=== PATIENT | female | born 1970 | race African-American/Black ===

== ENCOUNTER 2024-07-19 16:47 | Inpatient (IN) | payer MEDICAID ==
[~2024-07-19] VITALS: Ht 160 cm; Wt 72.6 kg
[2024-07-19] MEDS: CEFEPIME 2 GM in IV D5W 100 ML IV ONE (03:00)
[2024-07-19] MEDS: IV NS 0.9% 1,000 ML BAG IV ONE (17:59)
[2024-07-19] MEDS ORDERED: ACETAMINOPHEN ES 500 MG TABLET ONE (18:05)
[2024-07-19] MEDS ORDERED: IBUPROFEN 600 MG TABLET ONE (18:05)
[2024-07-19 18:10] LABS: BASOPHILS # (AUTO) 0.1 K/uL (0.0-0.2); HEMATOCRIT 43 % (33-45); HEMOGLOBIN 14.3 g/dL (11.5-14.8); LYMPHOCYTES # (AUTO) 0.8 K/uL (0.8-4.8); LYMPHOCYTES % (AUTO) 14.6 % (20.0-44.0); MEAN CORPUSCULAR HEMOGLOBIN 26 PG (26.0-33.0); MEAN CORPUSCULAR HGB CONC 33 g/dl (31.0-36.0); MEAN CORPUSCULAR VOLUME 78 fL (82-100); MONOCYTES # (AUTO) 0.6 K/uL (0.1-1.30); MONOCYTES % (AUTO) 11.2 % (2.0-12.0); NEUTROPHILS # (AUTO) 3.8 K/uL (1.8-8.9); NEUTROPHILS % (AUTO) 73.2 % (43.0-81.0); PLATELET COUNT (AUTO) 177 K/uL (150-450); RED BLOOD CELL COUNT(AUTO) 5.59 MIL/uL (4.0-5.2); RED CELL DISTRIBUTION WIDTH 15.9 % (11.5-15.0); WHITE BLOOD COUNT (AUTO) 5.2 K/uL (4.3-11.0)
[2024-07-19] MEDS: IBUPROFEN 600 MG TABLET PO ONE (18:11)
[2024-07-19] MEDS: ACETAMINOPHEN ES 500 MG TABLET PO ONE (18:11)
[2024-07-19 18:28] LABS: ALANINE AMINOTRANSFERASE 50 U/L (12-78); ALBUMIN 3.7 g/dL (3.4-5.0); ALKALINE PHOSPHATASE 105 U/L (46-116); ASPARTATE AMINOTRANSFERASE 32 U/L (15-37); BILIRUBIN,DIRECT 0.3 mg/dL (0.0-0.2); BILIRUBIN,TOTAL 0.9 mg/dL (0.2-1.0); CALCIUM, SERUM 9.1 mg/dL (8.5-10.1); CARBON DIOXIDE 28 mmol/L (21-32); CHLORIDE 100 mmol/L (98-107); CREATININE 1.2 mg/dL (0.6-1.3); GLUCOSE 123 mg/dL (74-106); POTASSIUM 3.7 mmol/L (3.5-5.1); SODIUM SERUM 136 mmol/L (136-145); TOTAL PROTEIN, SERUM 7.8 g/dL (6.4-8.2); UREA NITROGEN, BLOOD 15 mg/dL (7-18)
[2024-07-19 18:30] LABS: INR 1.22 (0.91-1.10); PARTIAL THROMBOPLASTIN TIME 30.5 SEC (24.3-34.3); PROTHROMBIN TIME 12.8 SECS (9.2-11.1)
[2024-07-19 18:42] LABS: LACTIC ACID 2.9 mmol/L (0.4-2.0)
[2024-07-19] MEDS: PIPERACILLIN /TAZOBACTAM 3.375 G in IV D5W 50 ML IV ONE (19:03)
[2024-07-19 20:04] LABS: APPEARANCE,URINE CLEAR (CLEAR); BILIRUBIN,URINE NEGATIVE (NEGATIVE); BLOOD, URINE 3+ Ery/uL (NEGATIVE); COLOR,URINE YELLOW (YELLOW); KETONES,URINE TRACE mg/dL (NEGATIVE); LEUKOCYTE ESTERASE ,URINE TRACE (NEGATIVE); NITRITE, URINE NEGATIVE (NEGATIVE); PROTEIN,URINE TRACE mg/dl (NEGATIVE); UGLUCOSE NEGATIVE (NEGATIVE)
[2024-07-19 20:15] LABS: ADD URINE CULTURE NO; BACTERIA,URINE 1+ /HPF (None Seen); MUCUS,URINE Few /LPF (None Seen)
[2024-07-19] MEDS ORDERED: hydrALAZINE HCL IV 20 MG VIAL IV PRN (21:30)
[2024-07-19] MEDS ORDERED: MORPHINE SULFATE INJ 2 MG/ML DISP.SYRIN IV PRN (21:30)
[2024-07-19] MEDS: VANCOMYCIN HCL 1.25 GM in IV D5W 250 ML IV ONE (23:30)
[2024-07-20] VITALS (7 sets, daily range): BP systolic 103–119; BP diastolic 58–73; TEMP 97.7–101.2; O2SAT 97–100
[2024-07-20] MEDS ORDERED: VANCOMYCIN 500 MG VIAL ONE (01:48)
[2024-07-20] MEDS ORDERED: CEFEPIME 1 GM VIAL ONE (01:49)
[2024-07-20] MEDS: VANCOMYCIN 1 GM /D5W 250 ML PB IV ONE (01:52)
[2024-07-20] MEDS: IV NS 0.9% 1,000 ML IV SCH (02:08)
[2024-07-20] MEDS: ENOXAPARIN SODIUM 40 MG/0.4 ML DISP.SYRIN SQ SCH (02:31)
[2024-07-20 07:30] LABS: BASOPHILS % (AUTO) 0.9 % (0.0-2.0); EOSINOPHILS % (AUTO) 1.1 % (0.0-6.0); HEMATOCRIT 39 % (33-45); HEMOGLOBIN 12.8 g/dL (11.5-14.8); LYMPHOCYTES % (AUTO) 29.7 % (20.0-44.0); MEAN CORPUSCULAR HEMOGLOBIN 26 PG (26.0-33.0); MEAN CORPUSCULAR HGB CONC 33 g/dl (31.0-36.0); MEAN CORPUSCULAR VOLUME 78 fL (82-100); MONOCYTES % (AUTO) 15.1 % (2.0-12.0); NEUTROPHILS % (AUTO) 53.2 % (43.0-81.0); PLATELET COUNT (AUTO) 141 K/uL (150-450); WHITE BLOOD COUNT (AUTO) 3.6 K/uL (4.3-11.0)
[2024-07-20 07:31] LABS: LYMPHOCYTES # (AUTO) 1.1 K/uL (0.8-4.8); MONOCYTES # (AUTO) 0.6 K/uL (0.1-1.30); NEUTROPHILS # (AUTO) 1.9 K/uL (1.8-8.9)
[2024-07-20 07:38] LABS: BILIRUBIN,TOTAL 0.7 mg/dL (0.2-1.0); CALCIUM, SERUM 8.4 mg/dL (8.5-10.1); MAGNESIUM 2.1 mg/dL (1.8-2.4); PHOSPHORUS 2.5 mg/dL (2.5-4.9); POTASSIUM 3.7 mmol/L (3.5-5.1); TOTAL PROTEIN, SERUM 6.6 g/dL (6.4-8.2)
[2024-07-20] MEDS: ACETAMINOPHEN 325 MG TABLET PO PRN (07:52)
[2024-07-20] MEDS ORDERED: LISI1TAB55 PO (08:14)
[2024-07-20] MEDS ORDERED: CEFTRIAXONE 1 G in IV D5W 50 ML IV SCH (09:00)
[2024-07-20 10:31] LABS: LYMPHOCYTES % (MANUAL) 16 % (16-48); MONOCYTES % (MANUAL) 7 % (0-11.0); NEUTROPHILS % (MANUAL) 27 (42-76)
[2024-07-20 10:33] LABS: ANISOCYTOSIS 1+; PLATELET ESTIMATE DECREASED
[2024-07-20] MEDS: DOXYCYCLINE HYCLATE (100 MG) 100 MG TABLET PO SCH (11:46)
[2024-07-20] MEDS: IBUPROFEN 400 MG TABLET PO ONE (11:46)
[2024-07-20] MEDS: ONDANSETRON HCL/PF 4 MG/2 ML VIAL IVP PRN (12:38)
[2024-07-20] MEDS ORDERED: CEFEPIME 2 GM in IV D5W 100 ML IV SCH (17:00)
[2024-07-20] MEDS ORDERED: VANCOMYCIN 1 GM in IV D5W 250 ML IV SCH (22:00)
[2024-07-21 07:11] LABS: CALCIUM, SERUM 8.8 mg/dL (8.5-10.1); POTASSIUM 3.7 mmol/L (3.5-5.1)
[2024-07-21 07:30] VITALS: BP 141/78; TEMP 99.9; O2SAT 97
[2024-07-21] MEDS: ATOVAQUONE PO SCH (09:55)
[2024-07-21] MEDS: PROGUANIL HCL PO SCH (09:55)
[2024-07-21] MEDS ORDERED: ATOVAQUONE PO ONE ×2 (10:05→12:55)
[2024-07-21] MEDS ORDERED: PROGUANIL HCL PO ONE ×2 (10:05→12:55)
[2024-07-21 16:00] VITALS: BP 113/54; TEMP 100.9; O2SAT 97
[2024-07-21 20:00] VITALS: BP 107/68; TEMP 98.2; O2SAT 95
[2024-07-22 07:04] LABS: CALCIUM, SERUM 8.8 mg/dL (8.5-10.1); CREATININE 0.8 mg/dL (0.6-1.3); POTASSIUM 3.8 mmol/L (3.5-5.1)
[2024-07-22 08:00] VITALS: BP 101/59; TEMP 99.5; O2SAT 99
[2024-07-22] MEDS: ATOVAQUONE PO SCH (08:27)
[2024-07-22] MEDS: PROGUANIL HCL PO SCH (08:27)
[2024-07-22 16:36] VITALS: BP 118/82; TEMP 100.8; O2SAT 96
[2024-07-22 20:00] VITALS: BP 103/51; TEMP 98.8; O2SAT 98
[2024-07-23 06:33] LABS: BASOPHILS # (AUTO) 0.1 K/uL (0.0-0.2); BASOPHILS % (AUTO) 0.8 % (0.0-2.0); EOSINOPHILS % (AUTO) 0.1 % (0.0-6.0); HEMATOCRIT 36 % (33-45); HEMOGLOBIN 12.1 g/dL (11.5-14.8); LYMPHOCYTES # (AUTO) 2.4 K/uL (0.8-4.8); LYMPHOCYTES % (AUTO) 28.3 % (20.0-44.0); MEAN CORPUSCULAR HEMOGLOBIN 25 PG (26.0-33.0); MEAN CORPUSCULAR HGB CONC 33 g/dl (31.0-36.0); MEAN CORPUSCULAR VOLUME 77 fL (82-100); MONOCYTES # (AUTO) 1.6 K/uL (0.1-1.30); MONOCYTES % (AUTO) 19.2 % (2.0-12.0); NEUTROPHILS # (AUTO) 4.4 K/uL (1.8-8.9); NEUTROPHILS % (AUTO) 51.6 % (43.0-81.0); PLATELET COUNT (AUTO) 102 K/uL (150-450); RED BLOOD CELL COUNT(AUTO) 4.74 MIL/uL (4.0-5.2); RED CELL DISTRIBUTION WIDTH 16.1 % (11.5-15.0); WHITE BLOOD COUNT (AUTO) 8.4 K/uL (4.3-11.0)
[2024-07-23 07:14] LABS: CALCIUM, SERUM 9.2 mg/dL (8.5-10.1); CREATININE 0.9 mg/dL (0.6-1.3); MAGNESIUM 2.2 mg/dL (1.8-2.4); PHOSPHORUS 2.9 mg/dL (2.5-4.9); POTASSIUM 4.1 mmol/L (3.5-5.1)
[2024-07-23 08:20] VITALS: BP 110/59; TEMP 99.1; O2SAT 96
[2024-07-23] MEDS: TRAMADOL HCL 50 MG TABLET PO PRN (09:18)
[2024-07-23 11:01] LABS: BAND % (MANUAL) 1 % (0.0-5.0); LYMPHOCYTES % (MANUAL) 35 % (16-48); MONOCYTES % (MANUAL) 7 % (0-11.0); NEUTROPHILS % (MANUAL) 57 (42-76)
[2024-07-23 11:02] LABS: PLATELET ESTIMATE DECREASED
[2024-07-23 11:03] LABS: ANISOCYTOSIS 1+
[2024-07-23 16:27] VITALS: BP 106/62; TEMP 98.4; O2SAT 96
[2024-07-23] MEDS: ENSURE ENLIVE CHOC 237 ML CAN PO SCH (17:09)
[2024-07-23 20:00] VITALS: BP 111/74; TEMP 98.4; O2SAT 95
[2024-07-24 07:28] LABS: CALCIUM, SERUM 9.1 mg/dL (8.5-10.1); CREATININE 0.7 mg/dL (0.6-1.3); POTASSIUM 3.9 mmol/L (3.5-5.1)
[2024-07-24 08:00] VITALS: BP 101/59; TEMP 98.6; O2SAT 95
[2024-07-24 16:00] VITALS: BP 111/73; TEMP 98.2; O2SAT 98
[2024-07-24 20:00] VITALS: BP 107/69; TEMP 98.2; O2SAT 96
[2024-07-25 06:37] LABS: CALCIUM, SERUM 9.1 mg/dL (8.5-10.1); CREATININE 0.8 mg/dL (0.6-1.3); POTASSIUM 3.5 mmol/L (3.5-5.1)
[2024-07-25 08:00] VITALS: BP 125/72; TEMP 98.2; O2SAT 95
== END 2024-07-25 12:56 | disposition home or self-care (01) | DRG 724 ==
LOC: ER 16:49 → TELE 07-20 00:05 → MED 07-20 00:33
PROVIDERS: ADMIT Internal Medicine; ATTEND Internal Medicine
DX: B54 Unspecified malaria (principal); D68.9 Coagulation defect, unspecified; E87.20 Acidosis, unspecified; I10 Essential (primary) hypertension; N39.0 Urinary tract infection, site not specified; Z20.822 Contact with and (suspected) exposure to COVID-19; R71.8 Other abnormality of red blood cells; Z79.899 Other long term (current) drug therapy
CPT/HCPCS: 36415; 70450-TC; 71045-TC; 80048-TC; 80053-TC; 80076-TC; 80202-TC; 81001; 83605-TC; 83735-TC; 84100-TC; 85025-TC; 85730-TC; 87040-TC; 87207-TC; A4223; G0378; J0692; J0696; J1650; J2405; J2543; J3370; J7030; J7060